=== PATIENT | female | born 1945 | race Caucasian/White ===

== ENCOUNTER 2021-10-22 06:15 | Observation (INO) ==
[~2021-10-22 06:15] MED LIST: Buffered Lidocaine 1% SYRIN 1 ml INTRADERM ONE; DiMENhydriNATE IV 50 mg/ml 1 ml VIAL IV PUSH ONE; DiMENhydriNATE IV 50 mg/ml 1 ml VIAL ONE; HYDROcodone/ACETAMIN 5/325 mg TAB PO PRN; Lactated Ringers 1000 ml BAG 1,000 ML IV SCH; Metoclopramide 5 MG/ML VIAL (10 mg) IV PRN; Naloxone 0.4 mg VIAL 0.4 mg/ml 1 ml VIAL IV PRN; Ondansetron 4 mg VIAL 2 MG/ML 2 ml VIAL IV PRN; ceFAZolin 2 GM PREMIX 2 GM/50 ML BAG ONE
[2021-10-22] MEDS ORDERED: fentaNYL 100 mcg/2 ml 50 MCG/ML VIAL ONE ×5 (06:39→10:28)
[2021-10-22] MEDS ORDERED: Bupivacaine 0.5% SDV PF 30ML VIAL ONE (07:00)
[2021-10-22] MEDS ORDERED: ROPIVACAINE 5 MG/ML 30 ML BTL (0.5%) ONE (07:15)
[2021-10-22] MEDS ORDERED: Ondansetron 4 mg VIAL 2 MG/ML 2 ml VIAL ONE (09:01)
[2021-10-22] MEDS ORDERED: Dexamethasone IV 4 MG/ML VIAL 1 ml VIAL ONE (09:01)
[2021-10-22] MEDS ORDERED: Propofol 10 MG/ML 20 ML BTL ONE (09:01)
[2021-10-22] MEDS ORDERED: Magnesium Hydroxide LIQ 30 ML UDC PO PRN (09:42)
[2021-10-22] MEDS ORDERED: Lactulose 30 ml UDC PO PRN (09:42)
[2021-10-22] MEDS ORDERED: Ondansetron 4 mg VIAL 2 MG/ML 2 ml VIAL IV PRN (09:42)
[2021-10-22] MEDS ORDERED: Ondansetron ODT 4 mg TAB 4 MG TAB PO PRN (09:42)
[2021-10-22] MEDS ORDERED: diPHENhydraMINE 25 mg TAB PO PRN (09:42)
[2021-10-22] MEDS ORDERED: Morphine 2 MG/ML SYRINGE IV PRN (09:42)
[2021-10-22] MEDS ORDERED: diPHENhydraMINE IV 50 MG/ML 1 ml VIAL (BENADRYL) IV PRN (09:42)
[2021-10-22] MEDS ORDERED: oxyCODONE/Acetamin 5/325 mg TAB ONE (09:52)
[2021-10-22] MEDS: fentaNYL 100 mcg/2 ml 50 MCG/ML VIAL IV PRN ×6 (09:53→10:53)
[2021-10-22] MEDS ORDERED: Lactated Ringers 1000 ml BAG 1,000 ML IV SCH (10:00)
[2021-10-22] MEDS ORDERED: HYDROcodone/ACETAMIN 5/325 mg TAB ONE (10:06)
[2021-10-22] MEDS: ceFAZolin 1 GM ADVAN 1 GM in NS 0.9% 50 ML 50 ML IVPB SCH ×2 (15:24→22:49)
[2021-10-22] MEDS: Magnesium Hydroxide LIQ 30 ML UDC PO SCH (22:17)
[2021-10-23 06:54] LABS: Hematocrit 28 % (35-47); Hemoglobin 9.6 g/dL (12.0-16.0); Mean Platelet Volume 7.5 fL (7.4-10.4); Platelet Count 333 10^3/uL (150-450)
[2021-10-23 07:06] LABS: Calcium 9.1 mg/dL (8.6-10.3); Potassium 3.6 mmol/L (3.5-5.0); eGFR CKD-EPI 72.9 (>60)
[2021-10-23] MEDS: ceFAZolin 1 GM ADVAN 1 GM in NS 0.9% 50 ML 50 ML IVPB SCH (07:38)
[2021-10-23] MEDS ORDERED: NON FORMULARY MED (Potassium Gluconate 550 mg (90 mg) Tablet) PO SCH (09:00)
[2021-10-23] MEDS ORDERED: Vitamin THERAPEUTIC TAB PO SCH (09:00)
[2021-10-23] MEDS ORDERED: Conjugated Estrogens 0.625 TAB PO SCH (09:00)
[2021-10-23] MEDS ORDERED: BIFIDOBACTERIUM INFANTIS 4 MG PO SCH (09:00)
[2021-10-23] MEDS: Magnesium Hydroxide LIQ 30 ML UDC PO SCH (09:11)
[2021-10-23 11:16] VITALS: BP 144/70
== END 2021-10-23 11:37 | disposition home or self-care (01) ==
LOC: AA 06:15 → INTOOBSV 06:15 → SSU 11:21
PROVIDERS: ADMIT Orthopaedic Surgery Adult Reconstructive Orthopaedic Surgery; ATTEND Orthopaedic Surgery Adult Reconstructive Orthopaedic Surgery